=== PATIENT | female | born 1955 | race Two or more races ===

== ENCOUNTER 2019-02-11 09:15 | Emergency (ER) | payer BC ==
[~2019-02-11] VITALS: Ht 165.1 cm; Wt 58.6 kg
[2019-02-11] MEDS ORDERED: ONDANSETRON PF 4 MG/2 ML VIAL. IV ONE (10:30)
[2019-02-11] MEDS ORDERED: fentaNYL PF VIAL 100 MCG/2 ML VIAL IV ONE (10:30)
[2019-02-11] MEDS ORDERED: IV NORMAL SALINE 1000ML BAG 1,000 ML IV ONE (10:30)
[2019-02-11 10:44] LABS: BASO # 0.1 x10^3/uL (0.0-0.2); BASO % 1 % (0-3); EOS # 0.2 x10^3/uL (0.0-0.7); EOS % 3 % (0-3); HEMATOCRIT 40.9 % (36.0-47.0); HEMOGLOBIN 13.8 g/dL (12.0-15.5); LYMPH # 2.8 x10^3/uL (1.0-4.8); LYMPH % 40 % (24-48); MEAN CORPUSCULAR HEMOGLOBIN 32 pg (25-35); MEAN CORPUSCULAR HGB CONC 34 g/dL (31-37); MEAN CORPUSCULAR VOLUME 94 fL (79-100); MONO # 0.4 x10^3/uL (0.0-1.1); MONO % 6 % (0-9); NEUT # 3.4 x10^3uL (1.8-7.7); NEUT % 50 % (31-73); PLATELET COUNT 258 x10^3/uL (140-400); RED BLOOD COUNT 4.34 x10^6/uL (3.50-5.40); RED CELL DISTRIBUTION WIDTH 13.4 % (11.5-14.5); WHITE BLOOD COUNT 6.8 x10^3/uL (4.0-11.0)
--- NOTE | 2019-02-11 10:51 | PHYS DOC ---
Past Medical History Past Medical History: Hypertension Past Surgical History: Appendectomy, Hysterectomy Alcohol Use: Occasionally Drug Use: None Adult General Chief Complaint Chief Complaint: ABDOMINAL PAIN HPI HPI 63-year-old female presents to ER via POV with her complaints of abdominal pain which radiates into her back. Patient reports symptoms have been ongoing for several weeks and in the past months she has had an 8-10 pound weight loss. Patient reports intermittent nausea and pain increases after e ating. She denies vomiting or diarrhea episodes. She denies fever, urinary symptoms, fatigue/weakness, chest pain, or shortness of air. Patient denies swelling or pain in extremities. She reports been regular denying any dark tarry or bloody stools. She reports left-sided abdominal pain worse than right side. RN at bedside translating as patient speaks primary Yoruba. Review of Systems Review of Systems Constitutional: Denies fever or chills. Denies weakness Eyes: Denies change in visual acuity, redness, or eye pain [] HENT: Denies nasal congestion or sore throat [] Respiratory: Denies cough or shortness of breath [] Cardiovascular: Denies CP GI: Denies vomiting, bloody stools or diarrhea. Reports abd pain radiating into mid sides of back- she reports lt side abd pain worse. Reports intermittent nausea : Denies dysuria or hematuria [] Musculoskeletal: Denies back pain or joint pain [] Integument: Denies rash, swelling or skin lesions [] Neurologic: Denies headache, focal weakness or sensory changes [] Endocrine: Denies polyuria or polydipsia. Reports 8-10 # wt loss in past month All other systems were reviewed and found to be within normal limits, except as documented in this note. Current Medications Current Medications Current Medications Medications (Trade) Dose Ordered Sig/Arpit Start Time Stop Time Status Last Admin Dose Admin Fentanyl Citrate (Fentanyl 2ml Vial) 25 mcg 1X ONCE 02/11/19 10:30 02/11/19 10:31 DC 02/11/19 11:05 25 MCG Info (CONTRAST GIVEN -- Rx MONITORING) 1 each PRN DAILY PRN 02/11/19 11:15 02/11/19 14:06 DC Iohexol (Omnipaque 300 Mg/ml) 75 ml 1X ONCE 02/11/19 11:15 02/11/19 11:16 DC 02/11/19 11:15 75 ML Ondansetron HCl (Zofran) 4 mg 1X ONCE 02/11/19 10:30 02/11/19 10:31 DC 02/11/19 11:05 4 MG Sodium Chloride 1,000 ml @ 1,000 mls/hr 1X ONCE 02/11/19 10:30 02/11/19 11:29 DC 02/11/19 11:04 1,000 MLS/HR Allergies Allergies Allergies Coded Allergies Type Severity Reaction Last Updated Verified Penicillins Allergy Intermediate hives 02/11/19 Yes Uncoded Allergies Type Severity Reaction Last Updated Verified flu vaccine Allergy Intermediate unknown per pt 02/11/19 Physical Exam Physical Exam Constitutional: Well developed, well nourished, no acute distress, non-toxic appearance. [] HENT: Normocephalic, atraumatic, oropharynx moist, no oral exudates, nose normal. [] Eyes: Pupils equal, conjunctiva normal, no discharge. [] Neck: Normal range of motion, no tenderness, supple, no stridor. [] Cardiovascular: Bradycardic heart rate regular rhythm- 50s during exam, no murmur [] Lungs & Thorax: Bilateral breath sounds clear to auscultation. Resp. equal/nonlabored Abdomen: Bowel sounds normal, soft, no tension or rigidity, diffuse tenderness in mid abdomen from side to side with pt reporting pain is worse on the left side, no masses, no pulsatile masses. [] Skin: Warm, dry, no erythema, no rash. [] Back: No tenderness, no CVA tenderness. [] Extremities: No tenderness, no cyanosis, no clubbing, ROM intact, no edema. [] Neurologic: Alert and oriented X 3, normal motor function, normal sensory function, no focal deficits noted. [] Psychologic: Affect normal, judgement normal, mood normal. [] Current Patient Data Vital Signs Vital Signs Date Time Temp Pulse Resp B/P (MAP) Pulse Ox O2 Delivery O2 Flow Rate FiO2 02/11/19 13:30 50 20 140/65 (90) 99 Room Air 02/11/19 09:19 97.9 97.9 Lab Values Laboratory Tests Test 02/11/19 09:21 02/11/19 10:14 Urine Collection Type Unknown Urine Color Yellow Urine Clarity Clear Urine pH 5.5 Urine Specific [place] 1.015 Urine Protein Negative mg/dL (NEG-TRACE) Urine Glucose (UA) Negative mg/dL (NEG) Urine Ketones (Stick) Negative mg/dL (NEG) Urine Blood Trace (NEG) Urine Nitrite Negative (NEG) Urine Bilirubin Negative (NEG) Urine Urobilinogen Dipstick 0.2 mg/dL (0.2 mg/dL) Urine Leukocyte Esterase Small (NEG) Urine RBC 0 /HPF (0-2) Urine WBC 1-4 /HPF (0-4) Urine Squamous Epithelial Cells Mod /LPF Urine Bacteria Few /HPF (0-FEW) Urine Mucus Mod /LPF White Blood Count 6.8 x10^3/uL (4.0-11.0) Red Blood Count 4.34 x10^6/uL (3.50-5.40) Hemoglobin 13.8 g/dL (12.0-15.5) Hematocrit 40.9 % (36.0-47.0) Mean Corpuscular Volume 94 fL (79-100) Mean Corpuscular Hemoglobin 32 pg (25-35) Mean Corpuscular Hemoglobin Concent 34 g/dL (31-37) Red Cell Distribution Width 13.4 % (11.5-14.5) Platelet Count 258 x10^3/uL (140-400) Neutrophils (%) (Auto) 50 % (31-73) Lymphocytes (%) (Auto) 40 % (24-48) Monocytes (%) (Auto) 6 % (0-9) Eosinophils (%) (Auto) 3 % (0-3) Basophils (%) (Auto) 1 % (0-3) Neutrophils # (Auto) 3.4 x10^3uL (1.8-7.7) Lymphocytes # (Auto) 2.8 x10^3/uL (1.0-4.8) Monocytes # (Auto) 0.4 x10^3/uL (0.0-1.1) Eosinophils # (Auto) 0.2 x10^3/uL (0.0-0.7) Basophils # (Auto) 0.1 x10^3/uL (0.0-0.2) Sodium Level 141 mmol/L (136-145) Potassium Level 4.4 mmol/L (3.5-5.1) Chloride Level 103 mmol/L (98-107) Carbon Dioxide Level 28 mmol/L (21-32) Anion Gap 10 (6-14) Blood Urea Nitrogen 14 mg/dL (7-20) Creatinine 0.6 mg/dL (0.6-1.0) Estimated GFR (Cockcroft-Gault) 100.6 BUN/Creatinine Ratio 23 (6-20) H Glucose Level 103 mg/dL (70-99) H Calcium Level 9.4 mg/dL (8.5-10.1) Total Bilirubin 0.6 mg/dL (0.2-1.0) Aspartate Amino Transferase (AST) 14 U/L (15-37) L Alanine Aminotransferase (ALT) 19 U/L (14-59) Alkaline Phosphatase 141 U/L (46-116) H Troponin I Quantitative < 0.017 ng/mL (0.000-0.055) Total Protein 6.9 g/dL (6.4-8.2) Albumin 3.7 g/dL (3.4-5.0) Albumin/Globulin Ratio 1.2 (1.0-1.7) Lipase 79 U/L (73-393) Laboratory Tests 02/11/19 10:14 Laboratory Tests 02/11/19 10:14 Microbiology 02/11/19 Urine Culture - Final, Complete 02/11/19 Urine Culture Result 1 (KSENIA) - Final, Complete EKG EKG EKG obtained 02/11/19 at [address] Zapien Sinus bradycardia Incomplete rt BBB Rate 47 No STEMI Radiology/Procedures Radiology/Procedures PROCEDURE: CT ABD PELV W/ IV CONTRST ONLY PQRS Compliance Statement: One or more of the following individualized dose reduction techniques were utilized for this examination: 1. Automated exposure control 2. Adjustment of the mA and/or kV according to patient size 3. Use of iterative reconstruction technique CT ABD PELV W/ IV CONTRST ONLY Clinical Indication: abd pain, wt loss, Comparison: None. Technique: Helical CT imaging of the abdomen and pelvis is performed after 75 cc of Omnipaque 300 IV contrast. Oral contrast not given. Findings: There is moderate bilateral lower lobe atelectasis posteriorly. Coronary artery disease. Cardiac size normal. The liver, gallbladder, spleen, pancreas, adrenal glands, and abdominal aorta caliber are normal. Kidneys enhance symmetrically, no hydronephrosis. Tiny angiomyolipoma in the upper pole of the right kidney. Stomach unremarkable. No dilated small bowel is seen. Tiny fat-containing umbilical hernia. Appendectomy. There is scattered stool throughout the colon. No colon wall thickening is identified. No abdominal adenopathy or free fluid. Urinary bladder is distended, otherwise normal. Hysterectomy. No pelvic free fluid. Degenerative spondylosis of L5/S1. 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 Old left posterior 10th rib fracture. IMPRESSION: No acute abdominal or pelvic abnormality. Electronically signed by: River Linares MD (02/11/2019 12:45 PM) [id number] DICTATED and SIGNED BY: RIVER LINARES MD DATE: 02/11/19 1245 Course & Med Decision Making Course & Med Decision Making Pertinent Labs and Imaging studies reviewed. (See chart for details) 1340: Pt was evaluated in the ER for complaints of diffuse abdominal pain which is been ongoing for weeks. Discussed test results with RN martinez. Patient had labs, EKG, and CT obtained while in the ER. Patient's labs were unremarkable and UA negative for infection showed probable contamination with mod. bacteria sm. leuks/trace blood. EKG with no acute ST elevation/STEMI and troponin <0.017. Pt had bradycardic rhythm- denying any fatigue/cp or palp. Pt uncertain as to what her HR is on daily basis. Patient was treated with IV fluids and dose of pain medication with patient reporting pain had improved. Patient was nontoxic in appearance and in no visible distress during discharge discussion. Discussed CT abd/pelvis with no acute findings. Discussed admission with patient for f urther monitoring and care. Patient is not wanting to be admitted her symptoms improving. Discussed follow-up with her primary care physician and/or GI if symptoms persist and for reevaluation. Will provide Rx for Bentyl with d/c paperwork. Will provide GI referral information on discharge paperwork. Education provided on signs and symptoms to return to ER. Discharge instructions were discussed. Dragon Disclaimer Dragon Disclaimer This electronic medical record was generated, in whole or in part, using a voice recognition dictation system. Departure Departure Impression: Primary Impression: Abdominal pain Disposition: 01 HOME, SELF-CARE Condition: STABLE Referrals: RUSSELL GRADY (PCP) MARANDA SALAZAR MD Patient Instructions: Abdominal Pain Additional Instructions: Drink plenty of fluids and diet as tolerated. Call and schedule follow-up with your doctor or gastrointestinal doctor for re- evaluation and further care. Scripts Dicyclomine Hcl (DICYCLOMINE HCL) 10 Mg Capsule 1 CAP PO PRN Q6HRS PRN for PAIN, #10 CAP 0 Refills Prov: SHAE LINO APRN 02/11/19 SHAE LINO APRN Feb 11, 2019 10:51
[2019-02-11 10:53] LABS: CALCIUM 9.4 mg/dL (8.5-10.1); CREATININE 0.6 mg/dL (0.6-1.0); GFR 100.6; POTASSIUM 4.4 mmol/L (3.5-5.1)
[2019-02-11 11:05] LABS: ALBUMIN 3.7 g/dL (3.4-5.0); ALBUMIN/GLOBULIN RATIO 1.2 (1.0-1.7); TOTAL BILIRUBIN 0.6 mg/dL (0.2-1.0); TOTAL PROTEIN 6.9 g/dL (6.4-8.2)
[2019-02-11] MEDS ORDERED: CONTRAST GIVEN. MC PRN (11:15)
[2019-02-11] MEDS ORDERED: IOHEXOL 300 MG/ML 100ML VIAL. IV ONE (11:15)
[2019-02-11 11:18] LABS: BILIRUBIN,URINE NEGATIVE (NEG); CLARITY,URINE CLEAR; COLOR,URINE YELLOW; NITRITE,URINE NEGATIVE (NEG); PH,URINE 5.5; PROTEIN,URINE NEGATIVE (NEG-TRACE); UROBILINOGEN,URINE 0.2 mg/dL (0.2 mg/dL)
[2019-02-11 11:27] LABS: SQUAMOUS EPITHELIAL CELL,UR MOD /LPF
[2019-02-11 11:28] LABS: BACTERIA,URINE FEW /HPF (0-FEW); RBC,URINE 0 /HPF (0-2)
--- NOTE | 2019-02-11 12:47 | RAD ---
PQRS Compliance Statement: One or more of the following individualized dose reduction techniques were utilized for this examination: 1. Automated exposure control 2. Adjustment of the mA and/or kV according to patient size 3. Use of iterative reconstruction technique CT ABD PELV W/ IV CONTRST ONLY Clinical Indication: abd pain, wt loss, Comparison: None. Technique: Helical CT imaging of the abdomen and pelvis is performed after 75 cc of Omnipaque 300 IV contrast. Oral contrast not given. Findings: There is moderate bilateral lower lobe atelectasis posteriorly. Coronary artery disease. Cardiac size normal. The liver, gallbladder, spleen, pancreas, adrenal glands, and abdominal aorta caliber are normal. Kidneys enhance symmetrically, no hydronephrosis. Tiny angiomyolipoma in the upper pole of the right kidney. Stomach unremarkable. No dilated small bowel is seen. Tiny fat-containing umbilical hernia. Appendectomy. There is scattered stool throughout the colon. No colon wall thickening is identified. No abdominal adenopathy or free fluid. Urinary bladder is distended, otherwise normal. Hysterectomy. No pelvic free fluid. Degenerative spondylosis of L5/S1. 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 Old left posterior 10th rib fracture. IMPRESSION: No acute abdominal or pelvic abnormality. Electronically signed by: River Linares MD (02/11/2019 12:45 PM) [id number]
[2019-02-11 13:30] VITALS: BP 140/65
[2019-02-11] MEDS ORDERED: DICY10CA3 PO (13:46)
--- NOTE | 2019-02-12 06:09 | EKG ---
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
== END 2019-02-11 14:03 | disposition home or self-care (01) ==
LOC: ER 09:15
DX: R10.84 Generalized abdominal pain (principal); R11.0 Nausea; I10 Essential (primary) hypertension; R63.4 Abnormal weight loss; Z68.21 Body mass index [BMI] 21.0-21.9, adult; Z90.89 Acquired absence of other organs; Z90.710 Acquired absence of both cervix and uterus; Z88.0 Allergy status to penicillin; Z88.7 Allergy status to serum and vaccine
CPT/HCPCS: 36415; 74177; 80053; 81001; 83690; 84484; 85025; 87086; 93005; 96374; 96375; 99285; J2405; J3010; J7030; Q9967

== ENCOUNTER → 2020-09-23 | Outpatient (CLI) | payer BC ==
[~2020-09-23] MED LIST: DICY10CA3 PO
--- NOTE | 2020-09-23 11:59 | RAD ---
EXAM: Brain MRI without contrast. HISTORY: Migraines. TECHNIQUE: Multiplanar, multisequence magnetic resonance imaging of the brain was performed without contrast. COMPARISON: None. FINDINGS: There is no restricted diffusion to suggest acute or subacute infarction. There is no stenosis of stability effect to suggest hemorrhage. There is no mass effect or midline shift. There is no hydrocephalus. There are few scattered focal areas of signal change within the cerebral white matter. No orbital mass is seen. The paranasal sinuses are clear. There is minimal fluid the mastoid air cells. There are normal flow voids within the cerebral vessels. There is no calvarial lesion. IMPRESSION: 1. No acute intracranial finding. 2. Scattered foci of signal change within the cerebral white matter. This is most College due to chronic small vessel disease in patients of this age. The possibility of superimposed changes due to chronic migraine headaches can also be considered given the patient history. Electronically signed by: Theresa Venegas MD (09/23/2020 11:56 AM) [facility]
== END ==
LOC: MRI 13:29
PROVIDERS: ATTEND Nurse Practitioner Family
DX: G43.709 Chronic migraine without aura, not intractable, without status migrainosus (principal)
CPT/HCPCS: 70551

== ENCOUNTER → 2022-01-10 | Outpatient (CLI) | payer BC ==
--- NOTE | 2022-01-10 12:02 | KCIC ---
AP and Lateral Views of the Chest 01/10/2022 10:05 AM Indication: Reason: Asthma. Some SOA. / Spl. Instructions: / History: Comparison: None Findings: There is no focal consolidation or infiltrate identified. The cardiomediastinal silhouette is within normal limits. There is no evidence of pneumothorax or pleural effusion. No acute osseous a bnormalities are identified. Impression: No evidence of acute cardiopulmonary process. Electronically signed by: Garth Orozco MD (01/10/2022 12:00 PM) [id number]
== END ==
LOC: KCIC 10:02
PROVIDERS: ATTEND Internal Medicine Pulmonary Disease
DX: J45.909 Unspecified asthma, uncomplicated (principal); R06.02 Shortness of breath
CPT/HCPCS: 71046